=== PATIENT | male | born 1955 | race Caucasian/White ===

== ENCOUNTER 2019-04-01 14:33 | Inpatient (IN) | payer OTHER ==
[2019-04-01 17:11] VITALS: BMI 30.1
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
--- NOTE | 2019-04-01 19:38 | PN ---
Teaching Attending Note Name of Resident: Mayuri Verma ATTENDING PHYSICIAN STATEMENT I saw and evaluated the patient. I reviewed the resident's note and discussed the case with the resident. I agree with the resident's findings and plan as documented. SUBJECTIVE: 64 yo here for alcohol and opioid rehab. Was discharged from [facility] after treatment for psychosis. Pt completed detox here on 03/13. OBJECTIVE: Vital Signs - 24 hr 04/01/19 17:02 Temperature 100.2 F H Pulse Rate 79 Respiratory 18 Rate Blood Pressure 113/70 ASSESSMENT AND PLAN: Pt here for rehab services and continue MH meds- MH consult.
[2019-04-01] MEDS ORDERED: LOPERAMIDE HCL 2 MG CAPSULE PO PRN (19:40)
[2019-04-01] MEDS ORDERED: MAG HYDROX/AL HYDROX/SIMETH 30 ML UNIT-DOSE CUP PO PRN (19:40)
[2019-04-01] MEDS ORDERED: guaiFENesin 200 MG/10 ML 10 ML UNIT-DOSE CUPS PO PRN (19:40)
[2019-04-01] MEDS ORDERED: MAGNESIUM HYDROX 2400MG/30ML ORAL SUSPENSION 30 ML CUP PO PRN (19:40)
[2019-04-01] MEDS ORDERED: MENTHOL/PHENOL 1 EACH UD MM PRN (19:40)
[2019-04-01] MEDS ORDERED: IBUPROFEN 400 MG TABLET (FP) PO PRN (19:40)
[2019-04-01] MEDS ORDERED: ACETAMINOPHEN 325 MG TABLET (FP) PO PRN (19:40)
[2019-04-01] MEDS ORDERED: P-EPHED 60MG/TRIPROLIDI 2.5MG TABLET PO PRN (19:40)
[2019-04-01] MEDS ORDERED: MAGNESIUM CITRATE 300 ML BOTTLE PO PRN (19:40)
[2019-04-01] MEDS ORDERED: TUBERCULIN PPD 5 TU/0.1ML VIAL ID ONE (21:00)
[2019-04-01] MEDS: QUEtiapine FUMARATE 200 MG TABLET PO SCH (21:28)
[2019-04-01] MEDS: ASPIRIN 81 MG CHEWABLE TABLETS PO SCH (21:28)
[2019-04-01] MEDS: THIAMINE HCL 100 MG TABLET (FP) PO SCH (21:28)
[2019-04-01] MEDS ORDERED: MELATONIN 5 MG TABLETS PO PRN (22:00)
[2019-04-02] MEDS: QUEtiapine FUMARATE 200 MG TABLET PO SCH (07:31)
[2019-04-02] MEDS ORDERED: LITHIUM CARBONATE 450 MG TABLET.ER PO SCH (10:00)
--- NOTE | 2019-04-02 10:16 | CONSULT ---
[facility] Psychiatric Consult - Data Date of interview: 04/02/19 Admission source: [facility] Identifying data: Patient is a 64 year old single [place] male, father of one, unemployed, domiciled, and is supported by [facility]. This is patient's first admission to rehab at [facility]. Patient admitted to for alcohol, marijuana, cocaine, marijuana, and opiate dependence. Substance Abuse History: Smoking Cessation. Smoking history: Current every day smoker. Have you smoked in the past 12 months: Yes. Aproximately how many cigarettes per day: 10. Hx Chewing Tobacco Use: No. Initiated information on smoking cessation: Yes. 'Breaking Loose' booklet given: 04/01/19. - Substance & Tx. History. Hx Alcohol Use: Yes. Hx Substance Use: Yes. Substance Use Type : Alcohol, Cocaine, Heroin, Marijuana. - Substances abused. Cocaine. Substance route: Inhalation. Frequency: Daily. Amount used: $50. Age of first use: 24. Date of last use: 03/31/19. Alcohol. Substance route: Oral. Frequency: Daily. Amount used: 1 pint vodka. Age of first use: 15. Date of last use: 03/31/19. Heroin. Substance route: Inhalation. Frequency : Daily. Amount used: 1bag. Age of first use: 19. Date of last use: . Marijuana/Hashish. Substance route: Smoking. Frequency: Daily. Amount used: $50 bag. Age of first use: 14. Date of last use: 03/31/19 Psychiatric History: Patient reports feeling frustrated. Stated to real estate underwriter, " I can't talk. I'm sick and i can barely speak. i am going to go home" Patient then walked out of office. Nursing staff informed.
[2019-04-02] MEDS: ASPIRIN 81 MG CHEWABLE TABLETS PO SCH (11:41)
[2019-04-02] MEDS: amLODIPine BESYLATE 10 MG TABLET (FP) PO SCH (11:42)
[2019-04-02] MEDS: PRENATAL VITAMINS W/ FOLIC ACID TABLET (FP) PO SCH (11:42)
[2019-04-02 11:50] LABS: HEMATOCRIT 39.8 % (35.4-49); MCH 30.7 pg (25.7-33.7); MCHC 32.7 g/dl (32.0-35.9); MEAN CELL VOLUME 93.7 fl (80-96); MEAN PLT VOLUME 9.1 fl (7.5-11.1); PLATELET COUNT 244 K/MM3 (134-434); RBC 4.25 M/mm3 (4.00-5.60); RDW 15.7 % (11.9-15.9); WHITE BLOOD COUNT 7.1 K/mm3 (4.0-10.0)
[2019-04-02 11:56] LABS: ALBUMIN 3.2 g/dl (3.4-5.0); BILIRUBIN,TOTAL 0.2 mg/dL (0.2-1); BLOOD UREA NITROGEN 16.2 mg/dL (7-18); CALCIUM 8.9 mg/dL (8.5-10.1); CREATININE 0.6 mg/dL (0.55-1.3); POTASSIUM 3.7 mmol/L (3.5-5.1); TOT PROT 6.6 g/dl (6.4-8.2)
[2019-04-02 11:57] LABS: EPI CELLS 1.2 /HPF (0-5/HPF); HYALINE CASTS 3 /lpf (0-8); URINE APPEARANCE CLEAR; URINE BACTERIA 7.2 /hpf (NEGATIVE); URINE BILIRUBIN NEGATIVE (NEGATIVE); URINE COLOR YELLOW; URINE GLUCOSE (UA) NEGATIVE (NEGATIVE); URINE KETONE NEGATIVE (NEGATIVE); URINE LEUK ESTERASE NEGATIVE (NEGATIVE); URINE NITRITE NEGATIVE (NEGATIVE); URINE PROTEIN NEGATIVE (NEGATIVE); URINE RBC 11 /hpf (0-4); URINE UROBILINOGEN 0.2 mg/dL (0.2-1.0); URINE WBC 1 /hpf (0-5)
--- NOTE | 2019-04-02 16:23 | PN ---
[facility] Progress Note Note: Pt is a 64 y/o male with a hx of KUNAL-alcohol,heroin,cocaine,marijuana admitted yesterday to rehab from [facility]. Pt c/o Sore throat,raspy voice runny nose and dry cough, diarrhea x 5, bone pain, hot and cold chills and fatigue. Reports last drug use 3-4 days ago. Pt reports 3 months ago was in [facility] and was in ICU for 12 days because "they found blood in my lungs". Reports chest tube to drain the blood out and was on antibiotics. Pt reports slight SOB , denies dizziness, nausea or vomiting. Reports hx of Asthma and takes Albuterol inhaler. Vital Signs - 24 hr 04/01/19 04/02/19 04/02/19 17:02 01:21 03:30 Temperature 100.2 F H Pulse Rate 79 Respiratory 18 18 18 Rate Blood Pressure 113/70 04/02/19 07:18 Temperature 97.2 F L Pulse Rate 75 Respiratory 18 Rate Blood Pressure 141/84 Laboratory Tests 04/02/19 04/02/19 04/02/19 08:30 08:30 08:30 WBC 7.1 RBC 4.25 Hgb 13.0 Hct 39.8 MCV 93.7 MCH 30.7 MCHC 32.7 RDW 15.7 Plt Count 244 MPV 9.1 Sodium 143 Potassium 3.7 Chloride 110 H Carbon Dioxide 27 Anion Gap 5 L BUN 16.2 Creatinine 0.6 Est GFR (CKD-EPI)AfAm 124.89 Est GFR (CKD-EPI)NonAf 107.76 Random Glucose 92 Calcium 8.9 Total Bilirubin 0.2 AST 15 ALT 29 Alkaline Phosphatase 160 H Total Protein 6.6 Albumin 3.2 L Urine Color Urine Appearance Urine pH Ur Specific [place] Urine Protein Urine Glucose (UA) Urine Ketones Urine Blood Urine Nitrite Urine Bilirubin Urine Urobilinogen Ur Leukocyte Esterase Urine WBC (Auto) Urine RBC (Auto) Urine Casts (Auto) U Epithel Cells (Auto) Urine Bacteria (Auto) RPR Titer Nonreactive 04/02/19 08:30 WBC RBC Hgb Hct MCV MCH MCHC RDW Plt Count MPV Sodium Potassium Chloride Carbon Dioxide Anion Gap BUN Creatinine Est GFR (CKD-EPI)AfAm Est GFR (CKD-EPI)NonAf Random Glucose Calcium Total Bilirubin AST ALT Alkaline Phosphatase Total Protein Albumin Urine Color Yellow Urine Appearance Clear Urine pH 6.0 Ur Specific [place] 1.024 Urine Protein Negative Urine Glucose (UA) Negative Urine Ketones Negative Urine Blood 1+ H Urine Nitrite Negative Urine Bilirubin Negative Urine Urobilinogen 0.2 Ur Leukocyte Esterase Negative Urine WBC (Auto) 1 Urine RBC (Auto) 11 Urine Casts (Auto) 3 U Epithel Cells (Auto) 1.2 Urine Bacteria (Auto) 7.2 RPR Titer Pulse Ox = 93% (room air) Alert o x 3 nad oob ambulating with steady gait Heent:Normocephalic,eomi,perrla,pharynx wnl cardiac:s1 s2,rrr lungs:bilateral mild rhonchi, no wheeze; left rib with healed [id number] chest tube site) abdomen:+fatty,+bs,nt extremities/skin:no edema,full ROM/skin intact Admission Urine Tox: (-)opiates (+)THC A/P Pharyngitis protracted w/s S/P Chest tube-Hx Hemothorax Increase po fluids as tolerated Imodium prn for diarrhea cepastat lozenges prn for sore throat Actifed prn for nasal congestion Nebulizer treatment as directed reorder albuterol inhaler pulse ox now Spoke with resident Dr. Verma to consult with patient. (Pt did not mention lung involvement on admission)
--- NOTE | 2019-04-02 17:01 | CONSULT ---
Consultation: REQUESTING PROVIDER: CONSULT REQUEST: We have been asked to medically evaluate this patient for shortness of breath and rhonchi. 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 Yesterday pt reported a cough and sore throat, but denied chills. Temp was 100.2 yesterday, but 98F today with sats 93%. Pt said today, that he takes albuterol daily but missed a dose yesterday. Today, pt said his major reason for coming to rehab is to get a medical evaluation and he is requesting a chest Xray. During rounds today he c /o of SOB and gave a hx of hemothorax, s/p chest tube, at [facility] 01/24. It is unclear if it the hemothorax was post traumatic or spontaneous. Pt had been in [facility] prior to the admission yesterday and I put him back on the dc meds including amlodipine, ASA and seroquel. Pt reported last drink 9am 03/31/19, and heroine last use 3 days prior to presentation. Pt denies prior alcohol withdrawal seizures but reports black outs , could not remember the last black out. Pt says he binges at intervals and only has tremors. REVIEW OF SYSTEMS: Denies except for cough and sore throat Smoking Hx- over 50 years PHYSICAL EXAMINATION Vital Signs - 24 hr 04/01/19 04/02/19 04/02/19 17:02 01:21 03:30 Temperature 100.2 F H Pulse Rate 79 Respiratory 18 18 18 Rate Blood Pressure 113/70 04/02/19 07:18 Temperature 97.2 F L Pulse Rate 75 Respiratory 18 Rate Blood Pressure 141/84 GENERAL: Awake, alert, and fully oriented, in no acute distress, able to complete sentences, hoarse voice at baseline EYES: Pupils equal, round and reactive to light, extraocular movements intact EARS, NOSE, THROAT: Moist mucous membranes. LUNGS: Few wheezes,and rhonchi HEART: Regular rate and rhythm, normal S1 and S2 without murmur ABDOMEN: Soft, nontender, not distended, normoactive bowel sounds MUSCULOSKELETAL: Normal range of motion at all joints. No bony deformities or tenderness. No CVA tenderness. LOWER EXTREMITIES: 2+ pulses, warm, well-perfused. NEUROLOGICAL: Cranial nerves II-XII intact. Normal speech. Normal gait. PSYCHIATRIC: Cooperative. Good eye contact. Appropriate mood and affect. SKIN: Warm, dry, normal turgor, no rashes or lesions noted. Laboratory Results - last 24 hr 04/02/19 04/02/19 04/02/19 08:30 08:30 08:30 WBC 7.1 RBC 4.25 Hgb 13.0 Hct 39.8 MCV 93.7 MCH 30.7 MCHC 32.7 RDW 15.7 Plt Count 244 MPV 9.1 Sodium 143 Potassium 3.7 Chloride 110 H Carbon Dioxide 27 Anion Gap 5 L BUN 16.2 Creatinine 0.6 Est GFR (CKD-EPI)AfAm 124.89 Est GFR (CKD-EPI)NonAf 107.76 Random Glucose 92 Calcium 8.9 Total Bilirubin 0.2 AST 15 ALT 29 Alkaline Phosphatase 160 H Total Protein 6.6 Albumin 3.2 L Urine Color Urine Appearance Urine pH Ur Specific [place] Urine Protein Urine Glucose (UA) Urine Ketones Urine Blood Urine Nitrite Urine Bilirubin Urine Urobilinogen Ur Leukocyte Esterase Urine WBC (Auto) Urine RBC (Auto) Urine Casts (Auto) U Epithel Cells (Auto) Urine Bacteria (Auto) RPR Titer Nonreactive 04/02/19 08:30 WBC RBC Hgb Hct MCV MCH MCHC RDW Plt Count MPV Sodium Potassium Chloride Carbon Dioxide Anion Gap BUN Creatinine Est GFR (CKD-EPI)AfAm Est GFR (CKD-EPI)NonAf Random Glucose Calcium Total Bilirubin AST ALT Alkaline Phosphatase Total Protein Albumin Urine Color Yellow Urine Appearance Clear Urine pH 6.0 Ur Specific [place] 1.024 Urine Protein Negative Urine Glucose (UA) Negative Urine Ketones Negative Urine Blood 1+ H Urine Nitrite Negative Urine Bilirubin Negative Urine Urobilinogen 0.2 Ur Leukocyte Esterase Negative Urine WBC (Auto) 1 Urine RBC (Auto) 11 Urine Casts (Auto) 3 U Epithel Cells (Auto) 1.2 Urine Bacteria (Auto) 7.2 RPR Titer Active Medications Generic Name Dose Route Start Last Admin Trade Name Freq PRN Reason Stop Dose Admin Acetaminophen 650 mg 04/01/19 19:40 Tylenol - PO Q4H PRN FEVER Al Hydroxide/Mg Hydroxide 30 ml 04/01/19 19:40 Mylanta Oral Suspension - PO Q6H PRN DYSPEPSIA Albuterol Sulfate 2 puff 04/02/19 16:45 Ventolin Hfa Inhaler - IH Q4H NEIL Albuterol Sulfate 1 amp 04/02/19 20:00 Ventolin 0.083% Nebulizer Soln - NEB RQID NEIL Amlodipine Besylate 10 mg 04/02/19 10:00 04/02/19 11:42 Norvasc - PO 10 mg DAILY NEIL Administration Aspirin 81 mg 04/01/19 20:00 04/02/19 11:41 Asa - PO 81 mg DAILY NEIL Administration Eucalyptus/Menthol/Phenol/Sorbitol 1 each 04/01/19 19:40 04/02/19 11:49 Cepastat Lozenge - MM 1 each Q4H PRN Administration SORE THROAT Guaifenesin 10 ml 04/01/19 19:40 04/02/19 11:49 Robitussin - PO 10 ml Q6H PRN Administration COUGH Ibuprofen 400 mg 04/01/19 19:40 Motrin - PO Q6H PRN Pain level 4-6 Loperamide HCl 4 mg 04/01/19 19:40 Imodium - PO Q6H PRN DIARRHEA Magnesium Citrate 300 ml 04/01/19 19:40 Citroma - PO Q48H PRN CONSTIPATION Magnesium Hydroxide 30 ml 04/01/19 19:40 Milk Of Magnesia - PO DAILY PRN CONSTIPATION Melatonin 5 mg 04/01/19 22:00 Melatonin PO HS PRN INSOMNIA Multivit/Folic Acid/Iron 1 tab 04/02/19 10:00 04/02/19 11:42 Vitamins (Sjr) - PO 1 tab DAILY NEIL Administration Pseudoephedrine/Triprolidine 1 combo 04/01/19 19:40 Actifed - PO TID PRN NASAL CONGESTION Thiamine HCl 100 mg 04/01/19 22:00 04/01/19 21:28 Vitamin B1 - PO 100 mg HS NEIL Administration ASSESSMENT/PLAN: Pt is a 64 year old M with PMHx of HTN (norvasc), depression (seroquel 200 bid, lithium 450mg daily) here for rehab from alcohol, heroine, admitted yesterday, now c/o of SOB and noted to have rhonchi by [facility] OPER[facility] in rehab, now requesting CXR. Acute persistent asthma Albuterol nebs CXR-needs transfer to [facility] ED Hx of Pneumothorax s/p chest tube Unclear if spontaneous/infectious or post traumatic Pt requesting follow up Xray Pt can return for rehab once cleared from the ED Dispo: We will continue to follow the patient. Thank you for this consultative opportunity. <SantaMayuri bolton I - Last Filed: 04/03/19 08:03> Consultation: REQUESTING PROVIDER: CONSULT REQUEST: We have been asked to medically evaluate this patient for ( specify). HISTORY OF PRESENT ILLNESS: REVIEW OF SYSTEMS: CONSTITUTIONAL: Absent: fever, chills, diaphoresis, generalized weakness, malaise, loss of appetite, weight change HEENT: Absent: rhinorrhea, nasal congestion, throat pain, throat swelling, difficulty swallowing, mouth swelling, ear pain, eye pain, visual changes CARDIOVASCULAR: Absent: chest pain, syncope, palpitations, irregular heart rate, lightheadedness , peripheral edema RESPIRATORY: Absent: cough, shortness of breath, dyspnea with exertion, orthopnea, wheezing, stridor, hemoptysis GASTROINTESTINAL: Absent: abdominal pain, abdominal distension, nausea, vomiting, diarrhea, constipation, melena, hematochezia GENITOURINARY: Absent: dysuria, frequency, urgency, hesitancy, hematuria, flank pain, genital pain MUSCULOSKELETAL: Absent: myalgia, arthralgia, joint swelling, back pain, neck pain SKIN: Absent: rash, itching, pallor HEMATOLOGIC/IMMUNOLOGIC: Absent: easy bleeding, easy bruising, lymphadenopathy, frequent infections ENDOCRINE: Absent: unexplained weight gain, unexplained weight loss, heat intolerance, cold intolerance NEUROLOGIC: Absent: headache, focal weakness or paresthesias, dizziness, unsteady gait, seizure, mental status changes, bladder or bowel incontinence PSYCHIATRIC: Absent: anxiety, depression, suicidal or homicidal ideation, hallucinations. PHYSICAL EXAMINATION Vital Signs - 24 hr 04/03/19 04/03/19 04/03/19 03:30 07:00 10:00 Temperature 97.8 F Pulse Rate 109 H 105 H Respiratory 18 18 Rate Blood Pressure 163/96 121/81 GENERAL: Awake, alert, and fully oriented, in no acute distress. HEAD: Normal with no signs of trauma. EYES: Pupils equal, round and reactive to light, extraocular movements intact, sclera anicteric, conjunctiva clear. No lid lag. EARS, NOSE, THROAT: Ears normal, nares patent, oropharynx clear without exudates. Moist mucous membranes. NECK: Normal range of motion, supple without lymphadenopathy, JVD, or masses. LUNGS: Breath sounds equal, clear to auscultation bilaterally. No wheezes, and no crackles. No accessory muscle use. HEART: Regular rate and rhythm, normal S1 and S2 without murmur, rub or gallop. ABDOMEN: Soft, nontender, not distended, normoactive bowel sounds, no guarding, no rebound, no masses. No hepatomegaly or splenomegaly. MUSCULOSKELETAL: Normal range of motion at all joints. No bony deformities or tenderness. No CVA tenderness. UPPER EXTREMITIES: 2+ pulses, warm, well-perfused. No cyanosis. No clubbing. Cap refill <2 seconds. No peripheral edema. LOWER EXTREMITIES: 2+ pulses, warm, well-perfused. No calf tenderness. No peripheral edema. NEUROLOGICAL: Cranial nerves II-XII intact. Normal speech. Normal gait. PSYCHIATRIC: Cooperative. Good eye contact. Appropriate mood and affect. SKIN: Warm, dry, normal turgor, no rashes or lesions noted. Active Medications Generic Name Dose Route Start Last Admin Trade Name Freq PRN Reason Stop Dose Admin Acetaminophen 650 mg 04/01/19 19:40 Tylenol - PO Q4H PRN FEVER Al Hydroxide/Mg Hydroxide 30 ml 04/01/19 19:40 Mylanta Oral Suspension - PO Q6H PRN DYSPEPSIA Albuterol Sulfate 2 puff 04/02/19 16:45 04/03/19 18:45 Ventolin Hfa Inhaler - IH 2 puff Q4H NEIL Administration Albuterol Sulfate 1 amp 04/02/19 20:00 04/03/19 18:05 Ventolin 0.083% Nebulizer Soln - NEB 1 amp RQID NEIL Administration Amlodipine Besylate 10 mg 04/02/19 10:00 04/03/19 10:11 Norvasc - PO 10 mg DAILY NEIL Administration Aspirin 81 mg 04/01/19 20:00 04/03/19 10:11 Asa - PO 81 mg DAILY NEIL Administration Eucalyptus/Menthol/Phenol/Sorbitol 1 each 04/01/19 19:40 04/02/19 11:49 Cepastat Lozenge - MM 1 each Q4H PRN Administration SORE THROAT Guaifenesin 10 ml 04/01/19 19:40 04/02/19 11:49 Robitussin - PO 10 ml Q6H PRN Administration COUGH Ibuprofen 400 mg 04/01/19 19:40 Motrin - PO Q6H PRN Pain level 4-6 Loperamide HCl 4 mg 04/01/19 19:40 Imodium - PO Q6H PRN DIARRHEA Magnesium Citrate 300 ml 04/01/19 19:40 Citroma - PO Q48H PRN CONSTIPATION Magnesium Hydroxide 30 ml 04/01/19 19:40 Milk Of Magnesia - PO DAILY PRN CONSTIPATION Melatonin 5 mg 04/01/19 22:00 Melatonin PO HS PRN INSOMNIA Multivit/Folic Acid/Iron 1 tab 04/02/19 10:00 04/03/19 10:11 Vitamins (Sjr) - PO 1 tab DAILY NEIL Administration Pseudoephedrine/Triprolidine 1 combo 04/01/19 19:40 Actifed - PO TID PRN NASAL CONGESTION Thiamine HCl 100 mg 04/01/19 22:00 04/02/19 22:34 Vitamin B1 - PO Not Given HS NEIL ASSESSMENT/PLAN: Dispo: We will continue to follow the patient. Thank you for this consultative opportunity. <Amy Traylor - Last Filed: 04/03/19 19:50> Problem List - Problems (1) Alcohol abuse Code(s): F10.10 - ALCOHOL ABUSE, UNCOMPLICATED (2) Heroin use disorder, mild Code(s): F11.10 - OPIOID ABUSE, UNCOMPLICATED (3) Depression Code(s): F32.9 - MAJOR DEPRESSIVE DISORDER, SINGLE EPISODE, UNSPECIFIED <Agaba,Comfort I - Last Filed: 04/03/19 08:03> Visit type - Emergency Visit Emergency Visit: No - New Patient This patient is new to me today: No - Critical Care Critical Care patient: No <Agaba,Comfort I - Last Filed: 04/03/19 08:03> ATTENDING PHYSICIAN STATEMENT I saw and evaluated the patient. I reviewed the resident's note and discussed the case with the resident. I agree with the resident's findings and plan as documented. SUBJECTIVE: OBJECTIVE: ASSESSMENT AND PLAN: <Agaba,Comfort I - Last Filed: 04/03/19 08:03> ATTENDING PHYSICIAN STATEMENT I saw and evaluated the patient. I reviewed the resident's note and discussed the case with the resident. I agree with the resident's findings and plan as documented. SUBJECTIVE: OBJECTIVE: ASSESSMENT AND PLAN:pt will be sent for evaluation to [facility] including a cxray <Amy Traylor - Last Filed: 04/03/19 19:50>
[2019-04-02] MEDS: ALBUTEROL SO4 8 GM HFA INHALER IH SCH ×2 (17:45→22:34)
[2019-04-02] MEDS: ALBUTEROL SO4 0.083% IH SOL 2.5 MG/3 ML VIAL.NEB. NEB SCH (22:34)
[2019-04-02] MEDS: THIAMINE HCL 100 MG TABLET (FP) PO SCH (22:34)
--- NOTE | 2019-04-03 01:35 | PN ---
[facility] Progress Note Note: client returns from [facility] after being cleared for acute asthma . as per client cxr and ? ?ct scan with contrast of chest done. dc papers reviewed. no notation of results of diagnostic tests noted client was given neb txment and iv solumedrol -stabilized and dc recc- medrol 4 mg pack and albuterol neb. client is a/ox3 nad
[2019-04-03] MEDS: ALBUTEROL SO4 8 GM HFA INHALER IH SCH ×6 (01:53→21:27)
[2019-04-03] MEDS: amLODIPine BESYLATE 10 MG TABLET (FP) PO SCH (10:11)
[2019-04-03] MEDS: PRENATAL VITAMINS W/ FOLIC ACID TABLET (FP) PO SCH (10:11)
[2019-04-03] MEDS: ASPIRIN 81 MG CHEWABLE TABLETS PO SCH (10:11)
[2019-04-03] MEDS: ALBUTEROL SO4 0.083% IH SOL 2.5 MG/3 ML VIAL.NEB. NEB SCH ×4 (10:20→20:49)
[2019-04-03] MEDS: THIAMINE HCL 100 MG TABLET (FP) PO SCH (21:27)
[2019-04-04] MEDS: ALBUTEROL SO4 8 GM HFA INHALER IH SCH ×3 (01:16→09:00)
[2019-04-04 07:09] VITALS: TEMP 97.9
[2019-04-04] MEDS: amLODIPine BESYLATE 10 MG TABLET (FP) PO SCH (09:46)
[2019-04-04] MEDS: ASPIRIN 81 MG CHEWABLE TABLETS PO SCH (09:47)
[2019-04-04] MEDS: PRENATAL VITAMINS W/ FOLIC ACID TABLET (FP) PO SCH (09:47)
[2019-04-04 09:57] VITALS: BP 137/82; PULSE 64
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
[2019-04-04] MEDS: ALBUTEROL SO4 0.083% IH SOL 2.5 MG/3 ML VIAL.NEB. NEB SCH (12:14)
== END 2019-04-04 11:45 | disposition left against medical advice (07) | DRG 770 ==
LOC: YASAS 14:33 → Y5N 20:22
PROVIDERS: ADMIT Neuromusculoskeletal Medicine & OMM; ATTEND Neuromusculoskeletal Medicine & OMM
PROC: HZ42ZZZ Group Counseling for Substance Abuse Treatment, Cognitive-Behavioral (ICD-10-PCS; principal; 2019-04-01)
DX: F10.20 Alcohol dependence, uncomplicated (principal); F11.20 Opioid dependence, uncomplicated; F17.210 Nicotine dependence, cigarettes, uncomplicated; F32.9 Major depressive disorder, single episode, unspecified; F14.20 Cocaine dependence, uncomplicated; F12.20 Cannabis dependence, uncomplicated; I10 Essential (primary) hypertension; J45.901 Unspecified asthma with (acute) exacerbation; J02.9 Acute pharyngitis, unspecified; Z87.820 Personal history of traumatic brain injury; Z91.5 Personal history of self-harm; Z88.8 Allergy status to other drugs, medicaments and biological substances; Z91.018 Allergy to other foods
CPT/HCPCS: 36415; 80053; 81003; 85027; 86593; 94640